=== PATIENT | female | born 1940 | race Caucasian/White ===

== ENCOUNTER 2021-07-21 16:32 | Emergency (ER) | payer OTHER ==
[~2021-07-21] VITALS: Ht 167.6 cm; Wt 57.2 kg
[2021-07-21] MEDS ORDERED: COZAAR25 MG (16:55)
[2021-07-21] MEDS ORDERED: SIMVASTATIN5 MG (16:55)
== END 2021-07-21 19:50 | disposition home or self-care (01) ==
LOC: ER 16:32
DX: R55 Syncope and collapse (principal)